=== PATIENT | male | born 1980 | race American Indian/Alaskan Native ===

== ENCOUNTER 2017-05-07 22:21 | Emergency (ER) | payer SELFPAY ==
[2017-05-07 22:39] VITALS: BP 155/105
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
[2017-05-08] MEDS ORDERED: MOTRIN PO ONE (02:12)
== END 2017-05-08 02:38 | disposition home or self-care (01) ==
LOC: ED 22:21
DX: M54.9 Dorsalgia, unspecified (principal); M54.2 Cervicalgia
CPT/HCPCS: 99282

== ENCOUNTER 2020-11-22 16:14 | Emergency (ER) | payer SELFPAY ==
[2020-11-22 16:51] VITALS: BP 183/114
[2020-11-22] MEDS ORDERED: FAMOTIDINE 20 MG/2 ML INJ IV ONE (16:56)
[2020-11-22] MEDS ORDERED: ONDANSETRON 4 MG/2 ML INJ IV ONE ×2 (16:56→19:59)
[2020-11-22] MEDS ORDERED: SODIUM CHLORIDE 0.9% 1000 ML 1,000 ML IV ONE (16:56)
[2020-11-22] MEDS ORDERED: MORPHINE 4 MG/1 ML INJ IV ONE (16:56)
--- NOTE | 2020-11-22 17:00 | Emergency Department Report ---
ED Abdominal Pain HPI - General Chief Complaint: Abdominal Pain Stated Complaint: SEVERE ABD PAIN Time Seen by Provider: 11/22/20 16:55 Source: patient Mode of arrival: Ambulatory Limitations: No Limitations - History of Present Illness Initial Comments: Patient is a 40-year-old male presents emergency room complaints of epigastric abdominal pain that began early this morning. He has associated nausea and vomiting. He states he was able to have a normal bowel movement today. Patient states that he drank heavily last night and states he was drinking tequila. He states he drinks a few times a week. He denies any known history of pancreatitis or PUD. He denies any hematochezia, melena, hematemesis, urinary symptoms. Past medical history of hypertension. No allergies to medications. Severity scale (0 -10): 10 - Related Data Previous Rx's Medication Instructions Recorded Last Taken Type Naproxen [Naprosyn] 500 mg PO BID 10 Days #20 tablet 05/08/17 Unknown Rx methOCARBAMOL [Robaxin TAB] 500 mg PO BID 10 Days #20 tab 05/08/17 Unknown Rx Famotidine [Pepcid] 40 mg PO QHS #30 tablet 11/22/20 Unknown Rx Ondansetron [Zofran Odt] 4 mg PO Q8HR PRN #10 tab.rapdis 11/22/20 Unknown Rx Sucralfate [Carafate] 1 gm PO ACHS 7 Days #21 tablet 11/22/20 Unknown Rx Allergies Allergy/AdvReac Type Severity Reaction Status Date / Time No Known Allergies Allergy Verified 11/22/20 16:55 ED Review of Systems ROS: Stated complaint: SEVERE ABD PAIN Other details as noted in HPI Comment: All other systems reviewed and negative ED Past Medical Hx - Past Medical History Previous Medical History?: No Hx HIV: Yes - Surgical History Past Surgical History?: No Hx Coronary Stent: No Hx Cholecystectomy: No Hx Appendectomy: No Hx Breast Surgery: No - Social History Smoking Status: Never Smoker Substance Use Type: Alcohol - Medications Home Medications: Home Medications Medication Instructions Recorded Confirmed Last Taken Type Naproxen [Naprosyn] 500 mg PO BID 10 Days #20 tablet 05/08/17 Unknown Rx methOCARBAMOL [Robaxin TAB] 500 mg PO BID 10 Days #20 tab 05/08/17 Unknown Rx Famotidine [Pepcid] 40 mg PO QHS #30 tablet 11/22/20 Unknown Rx Ondansetron [Zofran Odt] 4 mg PO Q8HR PRN #10 tab.rapdis 11/22/20 Unknown Rx Sucralfate [Carafate] 1 gm PO ACHS 7 Days #21 tablet 11/22/20 Unknown Rx ED Physical Exam - General Limitations: No Limitations General appearance: alert, in no apparent distress - Head Head exam: Present: atraumatic, normocephalic - Eye Eye exam: Present: normal appearance - ENT ENT exam: Present: mucous membranes moist - Respiratory Respiratory exam: Present: normal lung sounds bilaterally. Absent: respiratory distress, wheezes, rales, rhonchi, stridor, chest wall tenderness, accessory muscle use, decreased breath sounds, prolonged expiratory - Cardiovascular Cardiovascular Exam: Present: regular rate, normal rhythm, normal heart sounds. Absent: systolic murmur, diastolic murmur, rubs, gallop - GI/Abdominal GI/Abdominal exam: Present: soft, tenderness (epigastric), normal bowel sounds. Absent: distended, guarding, rebound, rigid - Neurological Exam Neurological exam: Present: alert, oriented X3 - Psychiatric Psychiatric exam: Present: normal affect, normal mood - Skin Skin exam: Present: warm, dry, intact ED Course Vital Signs 11/22/20 11/22/20 16:49 16:53 Temperature 98.7 F 98.7 F Pulse Rate 92 H 92 H Respiratory 16 92 H Rate Blood Pressure 183/114 183/114 [Right] O2 Sat by Pulse 100 99 Oximetry ED Medical Decision Making - Lab Data Result diagrams: 11/22/20 17:26 11/22/20 17:26 - Radiology Data Radiology results: report reviewed CT ABDOMEN AND PELVIS WITH CONTRAST INDICATION / CLINICAL INFORMATION: epigastric abd pain, n/v. TECHNIQUE: Axial CT images were obtained through the abdomen and pelvis after IV contrast. All CT scans at this location are performed using CT dose reduction for [employer] by means of automated exposure control. COMPARISON: None available. FINDINGS: LOWER CHEST: No significant abnormality. LIVER: No significant abnormality. GALLBLADDER: No significant abnormality. BILE DUCTS: No significant abnormality. PANCREAS: No significant abnormality. SPLEEN: No significant abnormality. ADRENALS: No significant abnormality. RIGHT KIDNEY / URETER: No significant abnormality. LEFT KIDNEY / URETER: No significant abnormality. STOMACH / SMALL BOWEL: No significant abnormality. COLON: No significant abnormality. APPENDIX: No significant abnormality. PERITONEUM: No free fluid. No free air. No fluid collection. LYMPH NODES: No significant adenopathy. VASCULAR STRUCTURES: No significant abnormality. URINARY BLADDER: No significant abnormality. REPRODUCTIVE ORGANS: No significant abnormality. ADDITIONAL FINDINGS: Small/moderate fat-containing ventral hernia. SKELETAL SYSTEM: No significant abnormality. IMPRESSION: Negative for obstruction or localized inflammation. Signer Name: Robert Sloan MD Signed: 11/22/2020 7:22 PM Workstation Name: [email or web address] - Medical Decision Making Patient is a 40-year-old male presents emergency room complaints of epigastric abdominal pain that began early this morning. He has associated nausea and vomiting. He states he was able to have a normal bowel movement today. Patient states that he drank heavily last night and states he was drinking tequila. He states he drinks a few times a week. He denies any known history of pancreatitis or PUD. He denies any hematochezia, melena, hematemesis, urinary symptoms. Past medical history of hypertension. No allergies to medications. Patient has epigastric tenderness to palpation, no guarding, no rebound, no rigidity, no vomiting, no peritoneal signs. Labs with leukocytosis and mildly elevated glucose, otherwise stable. CT abdomen pelvis with IV contrast IMPRESSION: Negative for obstruction or localized inflammation. Patient given medications on the emergency department with improvement of his symptoms. He was feeling much better and ready to go home. He was able to tolerate p.o. intake. Advised patient Please take medication as prescribed. Increase your water intake. Pl ease avoid alcohol use. Eat a bland liquid diet and slowly advance diet as tolerated. Follow-up with a primary care doctor. Follow-up with a GI doctor. Return to emergency room for any new or worsening symptoms. Critical care attestation.: If time is entered above; I have spent that time in minutes in the direct care of this critically ill patient, excluding procedure time. ED Disposition Clinical Impression: Abdominal pain Qualifiers: Abdominal location: epigastric Qualified Code(s): R10.13 - Epigastric pain Nausea & vomiting Qualifiers: Vomiting type: unspecified Vomiting Intractability: non-intractable Qualified Code(s): R11.2 - Nausea with vomiting, unspecified Disposition: 01 HOME / SELF CARE / HOMELESS Is pt being admited?: No Does the pt Need Aspirin: No Condition: Stable Instructions: Nausea and Vomiting, Adult, [id number], Abdominal Pain, Adult, [id number] Additional Instructions: Please take medication as prescribed. Increase your water intake. Please avoid alcohol use. Eat a bland liquid diet and slowly advance diet as tolerated. Follow-up with a primary care doctor. Follow-up with a GI doctor. Return to emergency room for any new or worsening symptoms. Prescriptions: Famotidine [Pepcid] 40 mg PO QHS #30 tablet Sucralfate [Carafate] 1 gm PO ACHS 7 Days #21 tablet Ondansetron [Zofran Odt] 4 mg PO Q8HR PRN #10 tab.rapdis PRN Reason: nausea vomiting Referrals: PRIMARY CARE, [Primary Care Provider] - 2-3 Days [facility] [Provider Group] - 2-3 Days Time of Disposition: 20:29 Print Language: BENGALI
[2020-11-22 17:48] LABS: Basophils # (Auto) 0.1 K/mm3 (0.0-0.1); Basophils % (Auto) 0.3 % (0.0-1.8); Hematocrit 43.5 % (35.5-45.6); Hemoglobin 14.1 gm/dl (11.8-15.2); Lymphocytes # (Auto) 1.9 K/mm3 (1.2-5.4); Lymphocytes % (Auto) 11.7 % (13.4-35.0); Mean Corpuscular HGB Conc 33 % (32-34); Mean Corpuscular Volume 71 fl (84-94); Monocytes # (Auto) 0.8 K/mm3 (0.0-0.8); Platelet Count 273 K/mm3 (140-440); Red Blood Count 6.09 M/mm3 (3.65-5.03); Red Cell Distribution Width 15.5 % (13.2-15.2)
[2020-11-22 17:59] LABS: Alanine Aminotransferase 15 units/L (7-56); Albumin 4.7 g/dL (3.9-5); Blood Urea Nitrogen 14 mg/dL (9-20); Hemolysis Index 64
[2020-11-22 18:07] LABS: BUN/Creatinine Ratio 20
--- NOTE | 2020-11-22 20:26 | Cat Scan Report ---
CT ABDOMEN AND PELVIS WITH CONTRAST INDICATION / CLINICAL INFORMATION: epigastric abd pain, n/v. TECHNIQUE: Axial CT images were obtained through the abdomen and pelvis after IV contrast. All CT sc ans at this location are performed using CT dose reduction for [employer] by means of automated exposure c ontrol. COMPARISON: None available. FINDINGS: LOWER CHEST: No significant abnormality. LIVER: No significant abnormality. GALLBLADDER: No significant abnormality. BILE DUCTS: No significant abnormality. PANCREAS: No significant abnormality. SPLEEN: No significant abnormality. ADRENALS: No significant abnormality. RIGHT KIDNEY / URETER: No significant abnormality. LEFT KIDNEY / URETER: No significant abnormality. STOMACH / SMALL BOWEL: No significant abnormality. COLON: No significant abnormality. APPENDIX: No significant abnormality. PERITONEUM: No free fluid. No free air. No fluid collection. LYMPH NODES: No significant adenopathy. VASCULAR STRUCTURES: No significant abnormality. URINARY BLADDER: No significant abnormality. REPRODUCTIVE ORGANS: No significant abnormality. ADDITIONAL FINDINGS: Small/moderate fat-containing ventral hernia. SKELETAL SYSTEM: No significant abnormality. IMPRESSION: Negative for obstruction or localized inflammation. Signer Name: Robert Sloan MD Signed: 11/22/2020 8:22 PM Workstation Name: [id number]
--- NOTE | 2020-11-23 11:22 | Electrocardiograph Report ---
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
== END 2020-11-22 20:55 | disposition home or self-care (01) ==
LOC: ED 16:14
DX: R10.13 Epigastric pain (principal); R11.2 Nausea with vomiting, unspecified; Z21 Asymptomatic human immunodeficiency virus [HIV] infection status
CPT/HCPCS: 36415; 74177; 80053; 83690; 84484; 85025; 93005; 96361; 96374; 96375; 96376; 99284; J2270; J2405; J7030; Q9967

== ENCOUNTER 2021-04-25 19:15 | Emergency (ER) | payer OTHER ==
[2021-04-25] MEDS ORDERED: SODIUM CHLORIDE 0.9% 1000 ML 1,000 ML IV ONE (20:39)
[2021-04-25] MEDS ORDERED: ONDANSETRON 4 MG/2 ML INJ IV ONE (20:39)
[2021-04-25] MEDS ORDERED: DICYCLOMINE 20 MG/2 ML INJ IM ONE (20:40)
--- NOTE | 2021-04-25 20:49 | Emergency Department Report ---
ED Abdominal Pain HPI - General Chief Complaint: Abdominal Pain Stated Complaint: AB PAIN PUI?: No Source: patient Mode of arrival: Ambulatory Limitations: No Limitations - History of Present Illness Initial Comments: Patient 40-year-old -[place] male who presents for left upper quadrant abdominal pain for 3 days. States nausea vomiting belly burning. Patient with history of hypertension patient denies fevers or chills, there is no diarrhea. Last p.o. intake 3 hours ago last nausea vomiting 1 hour ago. It was exacerbated by p.o. intake. Symptoms are relieved by nothing tried. Patient denies EtOH or smoking. MD Complaint: abdominal pain Severity scale (0 -10): 10 - Related Data Previous Rx's Medication Instructions Recorded Last Taken Type Naproxen [Naprosyn] 500 mg PO BID 10 Days #20 tablet 05/08/17 Unknown Rx methOCARBAMOL [Robaxin TAB] 500 mg PO BID 10 Days #20 tab 05/08/17 Unknown Rx Famotidine [Pepcid] 40 mg PO QHS #30 tablet 11/22/20 Unknown Rx Ondansetron [Zofran Odt] 4 mg PO Q8HR PRN #10 tab.rapdis 11/22/20 Unknown Rx Sucralfate [Carafate] 1 gm PO ACHS 7 Days #21 tablet 11/22/20 Unknown Rx Dicyclomine [Bentyl] 10 mg PO QID PRN #12 capsule 04/26/21 Unknown Rx Ibuprofen [Motrin 800 MG tab] 800 mg PO Q8HR PRN #30 tablet 04/26/21 Unknown Rx Ondansetron [Zofran Odt] 4 mg PO Q8HR PRN #12 tab.rapdis 04/26/21 Unknown Rx Allergies Allergy/AdvReac Type Severity Reaction Status Date / Time No Known Allergies Allergy Verified 11/22/20 16:55 ED Review of Systems ROS: Stated complaint: AB PAIN Other details as noted in HPI Constitutional: malaise. denies: chills, fever Eyes: denies: eye pain, eye discharge, vision change ENT: denies: ear pain, throat pain Respiratory: denies: cough, shortness of breath, wheezing Cardiovascular: as per HPI Endocrine: no symptoms reported Gastrointestinal: abdominal pain, nausea, vomiting. denies: diarrhea, constipa tion, hematemesis, melena, hematochezia Genitourinary: denies: urgency, dysuria, frequency, hematuria, discharge Musculoskeletal: denies: back pain, joint swelling, arthralgia Skin: denies: rash, lesions Neurological: denies: headache, weakness, paresthesias, vertigo Psychiatric: denies: anxiety, depression Hematological/Lymphatic: denies: easy bleeding, easy bruising ED Past Medical Hx - Past Medical History Previous Medical History?: Yes Hx HIV: Yes - Surgical History Hx Coronary Stent: No Hx Cholecystectomy: No Hx Appendectomy: No Hx Breast Surgery: No - Social History Smoking Status: Never Smoker Substance Use Type: Alcohol - Medications Home Medications: Home Medications Medication Instructions Recorded Confirmed Last Taken Type Naproxen [Naprosyn] 500 mg PO BID 10 Days #20 tablet 05/08/17 Unknown Rx methOCARBAMOL [Robaxin TAB] 500 mg PO BID 10 Days #20 tab 05/08/17 Unknown Rx Famotidine [Pepcid] 40 mg PO QHS #30 tablet 11/22/20 Unknown Rx Ondansetron [Zofran Odt] 4 mg PO Q8HR PRN #10 tab.rapdis 11/22/20 Unknown Rx Sucralfate [Carafate] 1 gm PO ACHS 7 Days #21 tablet 11/22/20 Unknown Rx Dicyclomine [Bentyl] 10 mg PO QID PRN #12 capsule 04/26/21 Unknown Rx Ibuprofen [Motrin 800 MG tab] 800 mg PO Q8HR PRN #30 tablet 04/26/21 Unknown Rx Ondansetron [Zofran Odt] 4 mg PO Q8HR PRN #12 tab.rapdis 04/26/21 Unknown Rx ED Physical Exam - General Limitations: No Limitations General appearance: alert, in no apparent distress - Head Head exam: Present: normocephalic, normal inspection - Eye Eye exam: Present: normal appearance, EOMI Pupils: Present: normal accommodation - ENT ENT exam: Present: mucous membranes moist - Neck Neck exam: Present: normal inspection, full ROM. Absent: tenderness, lymphadenopathy - Respiratory Respiratory exam: Present: normal lung sounds bilaterally. Absent: respiratory distress, wheezes, rales, rhonchi, stridor, chest wall tenderness - Cardiovascular Cardiovascular Exam: Present: regular rate, normal rhythm, normal heart sounds. Absent: systolic murmur, diastolic murmur, rubs, gallop - GI/Abdominal GI/Abdominal exam: Present: soft, normal bowel sounds. Absent: distended, tenderness, guarding, rebound, rigid, bruit, hernia - Expanded GI/Abdominal Exam Expanded GI/Abdominal exam: Absent: psoas sign, obturator sign, heel tap sign, Jarquin's sign, Rovsing's sign, tenderness at Mcburney's Point - Rectal Rectal exam: Present: deferred - Extremities Exam Extremities exam: Present: normal inspection, full ROM, normal capillary refill - Back Exam Back exam: Present: normal inspection, full ROM. Absent: tenderness, CVA tenderness (R), CVA tenderness (L) - Neurological Exam Neurological exam: Present: alert, oriented X3, CN II-XII intact, normal gait - Expanded Neurological Exam Expanded Patient oriented to: Present: person, place, time Speech: Present: fluid speech Motor strength exam: RUE: 5, LUE: 5, RLE: 5, LLE: 5 Best Eye Response (Haylee): (4) open spontaneously Best Motor Response (Haylee): (6) obeys commands Best Verbal Response (Bryan): (5) oriented Haylee Total: 15 - Psychiatric Psychiatric exam: Present: normal affect, normal mood - Skin Skin exam: Present: warm, dry, intact, normal color. Absent: rash ED Course Vital Signs 04/25/21 04/25/21 20:26 22:29 Temperature 98.4 F Pulse Rate 83 Respiratory 20 16 Rate Blood Pressure 199/119 [Right] O2 Sat by Pulse 98 Oximetry ED Medical Decision Making - Lab Data Result diagrams: 04/25/21 20:51 04/25/21 20:51 Labs 04/25/21 04/25/21 04/25/21 20:51 20:51 20:51 WBC 14.1 H RBC 6.44 H Hgb 13.5 Hct 43.9 MCV 68 L MCH 21 L MCHC 31 L RDW 16.0 H Plt Count 292 Lymph % (Auto) 8.9 L Moffat % (Auto) 2.1 Eos % (Auto) 0.1 Baso % (Auto) 0.4 Lymph # (Auto) 1.2 Moffat # (Auto) 0.3 Eos # (Auto) 0.0 Baso # (Auto) 0.1 Seg Neutrophils % 88.5 H Seg Neutrophils # 12.4 H Sodium 137 Potassium 3.9 Chloride 97.7 L Carbon Dioxide 23 Anion Gap 20 BUN 13 Creatinine 0.8 Estimated GFR > 60 BUN/Creatinine Ratio 16 Glucose 228 H Calcium 9.5 Total Bilirubin 0.90 AST 13 ALT 13 Alkaline Phosphatase 104 Total Protein 7.5 Albumin 4.5 Albumin/Globulin Ratio 1.5 Lipase 15 Urine Color Urine Turbidity Urine pH Ur Specific Grawn Urine Protein Urine Glucose (UA) Urine Ketones Urine Blood Urine Nitrite Urine Bilirubin Urine Urobilinogen Ur Leukocyte Esterase Urine WBC (Auto) Urine RBC (Auto) 04/25/21 Unknown WBC RBC Hgb Hct MCV MCH MCHC RDW Plt Count Lymph % (Auto) Moffat % (Auto) Eos % (Auto) Baso % (Auto) Lymph # (Auto) Moffat # (Auto) Eos # (Auto) Baso # (Auto) Seg Neutrophils % Seg Neutrophils # Sodium Potassium Chloride Carbon Dioxide Anion Gap BUN Creatinine Estimated GFR BUN/Creatinine Ratio Glucose Calcium Total Bilirubin AST ALT Alkaline Phosphatase Total Protein Albumin Albumin/Globulin Ratio Lipase Urine Color Yellow Urine Turbidity Clear Urine pH 6.0 Ur Specific Grawn 1.010 Urine Protein 100 mg/dl Urine Glucose (UA) Negative Urine Ketones Negative Urine Blood Negative Urine Nitrite Negative Urine Bilirubin Negative Urine Urobilinogen < 2.0 Ur Leukocyte Esterase Negative Urine WBC (Auto) < 1.0 Urine RBC (Auto) < 1.0 - Medical Decision Making Symptoms now resolved with medications given in ED. Patient is tolerating p.o. intake without nausea or vomiting. Patient advises abdominal pain is resolved to 0/10 at this time. Plan DC to home, follow-up with primary care doctor in 2 to 3 days. Return to emergency department should symptoms worsen. Patient lelo balized agreement and understanding with discharge plan. Patient DC'd home in stable condition at this time. Critical care attestation.: If time is entered above; I have spent that time in minutes in the direct care of this critically ill patient, excluding procedure time. ED Disposition Clinical Impression: Nausea and vomiting Qualifiers: Vomiting type: unspecified Qualified Code(s): R11.2 - Nausea with vomiting, unspecified Disposition: 01 HOME / SELF CARE / HOMELESS Is pt being admited?: No Does the pt Need Aspirin: No Condition: Stable Instructions: Nausea and Vomiting, Adult, Rehydration, Adult Additional Instructions: Take medications as prescribed, hydrate as directed, return to emergency department should symptoms worsen. Prescriptions: Dicyclomine [Bentyl] 10 mg PO QID PRN #12 capsule PRN Reason: abdominal spasm Ibuprofen [Motrin 800 MG tab] 800 mg PO Q8HR PRN #30 tablet PRN Reason: pain Ondansetron [Zofran Odt] 4 mg PO Q8HR PRN #12 tab.rapdis PRN Reason: Nausea And Vomiting Referrals: HENRIETTA CARABALLO MD [Staff Physician] - 3-5 Days Forms: Work/School Release Form(ED) Time of Disposition: 00:26
[2021-04-25 21:07] LABS: Basophils # (Auto) 0.1 K/mm3 (0.0-0.1); Basophils % (Auto) 0.4 % (0.0-1.8); Eosinophils % (Auto) 0.1 % (0.0-4.3); Lymphocytes # (Auto) 1.2 K/mm3 (1.2-5.4); Lymphocytes % (Auto) 8.9 % (13.4-35.0); Mean Corpuscular HGB Conc 31 % (32-34); Monocytes # (Auto) 0.3 K/mm3 (0.0-0.8); Monocytes % (Auto) 2.1 % (0.0-7.3); Platelet Count 292 K/mm3 (140-440); Red Blood Count 6.44 M/mm3 (3.65-5.03)
[2021-04-25 21:10] LABS: Hematocrit 43.9 % (35.5-45.6); Hemoglobin 13.5 gm/dl (11.8-15.2); Mean Corpuscular Volume 68 fl (84-94)
[2021-04-25 21:26] LABS: Alanine Aminotransferase 13 units/L (7-56); Albumin 4.5 g/dL (3.9-5); BUN/Creatinine Ratio 16; Blood Urea Nitrogen 13 mg/dL (9-20); Calcium 9.5 mg/dL (8.4-10.2); Hemolysis Index 33
[2021-04-25] MEDS ORDERED: KETOROLAC 30 MG/1 ML INJ IV ONE (22:01)
[2021-04-25] MEDS ORDERED: METOCLOPRAMIDE 10 MG/2 ML INJ IV ONE (22:19)
[2021-04-25] MEDS ORDERED: diphenhydrAMINE 50 MG/ML VIAL IV ONE (22:19)
[2021-04-26 00:01] LABS: Color,Urine Yellow (Yellow)
[2021-04-26 00:02] LABS: Bilirubin,Urine Negative (Negative)
[2021-04-26 00:03] LABS: Blood,Urine Negative (Negative)
[2021-04-26 00:04] LABS: Urobilinogen,Urine < 2.0 mg/dL (<2.0)
[2021-04-26 00:09] LABS: RBC,Urine < 1.0 /HPF (0.0-6.0); WBC,Urine < 1.0 /HPF (0.0-6.0)
[2021-04-26 00:56] VITALS: BP 169/101
== END 2021-04-26 00:57 | disposition home or self-care (01) ==
LOC: ED 19:15
DX: R11.2 Nausea with vomiting, unspecified (principal); F10.20 Alcohol dependence, uncomplicated
CPT/HCPCS: 36415; 80053; 81001; 83690; 85025; 96361; 96372; 96374; 96375; 99283; J0500; J1200; J1885; J2405; J2765; J7030; Q0162